=== PATIENT | male | born 1960 ===

== ENCOUNTER 2022-02-07 06:11 | Day surgery (SDC) | payer OTHER, SELFPAY ==
--- NOTE | 2022-02-06 20:25 | W.PM.DSUDISC ---
Date of service: 02/07/22 Time of Service: 08:25 Discharge Plan Disposition Patient Disposition: Home Condition: Good Discharge Details Reason For Visit: Left inguinal hernia repair Attending Provider: Darrion Oswald Primary Care Provider: Mary Ann Myers Home Meds and New Rx's Prescriptions: New tramadol 50 mg tablet 50 mg PO Q8H PRN (Reason: pain) Qty: 9 0RF Rx Instructions: Take 1 tablet by mouth up to every 8 hours if needed for severe pain. This medication is addictive, so please take care and using it. Continued zolpidem 10 mg tablet 10 mg PO QHS PRN ibuprofen 800 mg tablet 800 mg PO ONCE latanoprost 0.005 % drops 1 drp ophthalmic (eye) QPM tamsulosin 0.4 mg capsule 0.4 mg PO QHS sumatriptan succinate [Imitrex] 100 mg tablet 100 mg PO BID PRN Label Comments: PCP note indicates BID PRN. (02/18/2020) Discharge Instructions Instructions: Inguinal Hernia (GEN) Additional Instructions: 1. Resume all of your medications. 2. Okay to use tylenol and ibuprofen over the counter as needed. Use [] as needed for severe pain. 3. Heating pads and/or cold packs are fine to use for pain. 4. Leave bandage in place for 24 hours, then remove. 5. Shower with warm soapy water. Pat dry. Use a bandaid if needed to protect your clothing. 6. No soaking or tub baths until I see you in the office. 7. No heavy lifting until I see you in the office. 8.Call the office (or go directly to the emergency room after hours) if you notice any of the following: Develop chills (warm to touch), or if you have a thermometer and your temperature is above 101 Difficulty breathing or difficultly swallowing Persistent vomiting Any bleeding ? exceeding one tablespoon 6. Call your physician if the site where your intravenous was started becomes red, swollen, painful, and warm to touch. Referrals: Darrion Oswald MD [ [facility] STAFF PHYSICIAN] - Activity:: no heavy lifting Remove Dressings/Wound Care:: 24 hours Shower/Bathe:: 24 hours Diet:: As Tolerated Discharge Orders Discharge Orders: Discharge Order (Routine); Ordered 02/06/22 Ordered By: Darrion Oswald DS: Diagnosis Discharge Diagnosis (1) Left inguinal hernia: Status: Acute Asessment and Plan: Uncomplicated hernia repair with mesh. Follow-up in my office 10 to 14 days for routine postoperative care
--- NOTE | 2022-02-06 20:27 | ROE_ITS ---
Date of service: 02/07/22 Time of Service: 08:27 Operative Note Operative Note DATE OF PROCEDURE: 02/07/22 PRE-OP DIAGNOSIS: Left inguinal hernia Left-sided direct inguinal hernia PROCEDURE: Left inguinal herniorraphy with mesh SURGEON: Darrion Oswald EXTRUDER OPERATOR HELPER: Ophelia Gaona ANESTHESIA TYPE: Local By Surgeon, General:No Airway and Other (Left-sided tap block) Refer to Anesthesia Record ESTIMATED BLOOD LOSS: 20 COMPLICATIONS: None Patient was transported to: PACU Patient's condition: stable Indications: Perico is a 61-year-old male with a left-sided inguinal hernia that has become increasingly uncomfortable, and has enlarged in size over the past few weeks Procedure Description: I began by confirming the correct site with the patient. Next, after induction of general anesthesia the anesthesia specialists performed an ultrasound-guided tap block. The surgical site was then prepped and draped in the usual fashion. I began by making an oblique incision over the left inguinal region. I dissected down through the skin to the deep fascia. Next, I incised the fascia along the length of the inguinal canal to the external ring. I then carefully identified the ilioinguinal nerve and elevated it off of the cord structures. Once this was complete, I bluntly dissected the shelving edge of the inguinal ligament down towards the pubic tubercle. Here, I encircled all cord structures with a [place] drain. Next, I began dissecting the specific cord structures. Great care was taken to spare the vas deferens and the blood supply to the testicle. Next, I isolated the hernia sac from the other inguinal structures. I reduced it back to its normal anatomic position. Through the posterior wall. This was a direct inguinal hernia, and after dissection of the cord structures, I did not find any evidence of an indirect hernia. Next, I buttressed the posterior floor of the inguinal canal with a large mesh patch, cut to fit the surgical site.. I started by fixing it to the pubic tubercle. Next, I used Prolene sutures to affix it to the shelving edge of the inguinal ligament and t he conjoined tendon. Laterally I tacked it to the transversalis fascia and reconstructed an internal ring without any strain on the cord structures. Once this was complete, I irrigated the surgical field. It appeared hemostatic. I then closed the anterior portion of the fascia to reconstruct the front wall of the inguinal canal. I did this with interrupted Vicryl stitches. Once again, I irrigated the surgical field and inspected for hemostasis. Finally, I approximated the superficial fascia and the deep layers of the skin with absorbable suture. Skin was closed with running subcuticular suture. Bandages were applied, the patient was awakened and transferred to the recovery unit.
[2022-02-07] VITALS (13 sets, daily range): BP systolic 84–119; BP diastolic 53–82; PULSE 53–69; RESP 10–16; TEMP 36.3–36.7; O2SAT 92–97; BMI 30.4
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
[2022-02-07] MEDS: Celecoxib 200 MG CAP PO (06:43)
[2022-02-07] MEDS: Acetaminophen 500 MG TAB 1000 MG PO (06:44)
[2022-02-07] MEDS: Lactated Ringers 1,000 ML 80 ML IV (06:51)
[2022-02-07] MEDS: ceFAZolin 2 GM/50 ML BAG IVPB (07:22)
--- NOTE | 2022-02-07 07:44 | W.ANESNERVE ---
Nerve Block Single Injection Procedure Date and Time Date Performed: 02/07/22 Procedure Start: 07:30 Location Where Procedure Performed Procedure Location: Operating Room Procedure Stop: 07:34 Reason Performed: Postoperative Analgesia Requesting Provider: Darrion Oswald Timeout Performed Timeout Performed: Yes Monitoring Used ECG, Blood Pressure, SpO2 and ETCO2 Sterility Sterility: Hand Hygiene, Surgical Cap, Surgical Mask and Chlorhexidine Sedation Given During Procedure Sedation Given (Indicate Dose Given): No Sedation given Patient Mental Status Patient Mental Status: Performed under general anesthesia Nerve Block 1st Nerve Block: Laterality: Left Block Type: TAP Unilateral Needle / Catheter Used: 100mm SonoPlex II Local Anesthetic Bolus (Indicate Dose Given): Bupivacaine 0.375% Dose:: 20 mL Additives (Indicate Dose Given): Precedex Dose:: 50 mcg Ultrasound: Sterile probe cover and gel used Ultrasound Image Saved?: Yes Nerve Stimulator: Not Used Paresthesia: None Procedure Tolerated: No Complications Procedure Outcome: Successful Performed By: Maxime Moreno
[2022-02-07] MEDS: Bupivacaine 0.5% Pres-Free W/EPI 30 ML VIAL (08:18)
--- NOTE | 2022-02-07 09:46 | W.ANESPOSTOP ---
Postoperative Evaluation Date, Time and Location Date Performed: 02/07/22 Time Performed: 09:46 Patient Location: PACU Vital Signs Most Recent Imported Vital Signs: Most Recent Vital Signs Temp Pulse Resp BP Pulse Ox 36.5 C 55 L 11 L 95/64 L 94 02/07/22 09:35 02/07/22 09:35 02/07/22 09:35 02/07/22 09:35 02/07/22 09:35 Pain Score Most Recent Pain Score: Most Recent Pain Score Pain Level 0 02/07/22 09:35 Assessment Mental Status: Arousable with meaningful communication Airway and Respiratory Function: Patent airway with normal (patient baseline) respiratory exam Cardiovascular Function: Hemodynamically Stable Hydration Status: Adequately Hydrated Nausea & Vomiting: No Nausea or Vomiting Pain: Pain is tolerable per patient Peripheral Nerve Block: Regional nerve block not resolved at time of post operative discharge
== END 2022-02-07 12:00 | disposition home or self-care (01) ==
PROVIDERS: PCP Internal Medicine; Visit Provider Surgery
PROC: (CPT 49505; principal; 2022-02-07 07:30)
DX: K40.90 Unilateral inguinal hernia, without obstruction or gangrene, not specified as recurrent (principal); I10 Essential (primary) hypertension; K21.9 Gastro-esophageal reflux disease without esophagitis
CPT/HCPCS: 49505; 76942; C1781; J0690; J1100; J1885; J2405; J2704; J3475